=== PATIENT | male | born 1945 | race African-American/Black ===

== ENCOUNTER 2016-06-15 15:46 | Emergency (ER) | payer OTHER ==
[2016-06-15 16:05] VITALS: BP 160/85; PULSE 99; TEMP 98.2; BMI 30.9
--- NOTE | 2016-06-15 17:12 | PDOC ---
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 Patient presents today complaining of rectal discomfort unable to past a hard stool that noted at rectal vault. Patient denies any rectal bleeding, abdomininal pain or nausea or vomiting or diarrhea. He denies that this is ever happened to him before patient feels hard stool at entrance of the rectum but is unable to pass it due to discomfort. Patient reports that he had a normal bowel movement yesterday that was brown and formed and normal regular size. 06/15/16 17:12 06/15/16 18:49 Timing/Duration: getting worse (today constipated stool ) Severity: moderate (rectal ) Associated Symptoms: reports: denies symptoms. denies: fever/chills, loss of appetite, nausea/vomiting Past History - Past Medical History Allergies/Adverse Reactions: Allergies Allergy/AdvReac Type Severity Reaction Status Date / Time No Known Drug Allergies Allergy Verified 06/15/16 16:05 Home Medications: Ambulatory Orders Amlodipine Besylate [Norvasc -] 10 mg PO DAILY 05/15/13 Magnesium Hydrox 2400MG/30Ml [Milk of Magnesia -] 30 ml PO Q8H PRN #1 cup Sitagliptin Phosphate [Januvia -] 50 mg PO DAILY@0700 #30 ud 06/18/13 Docusate Sodium [Colace -] 200 mg PO DAILY #30 capsule 06/15/16 Polyethylene Glycol 3350 [Miralax (For Bowel Prep) -] 17 gm PO DAILY #1 bottle 06/15/16 Anemia: No Asthma: No Cancer: Yes (KIDNEY) Cardiac Disorders: No CVA: No COPD: No CHF: No Dementia: No Diabetes: Yes GI Disorders: No Disorders: No HTN: Yes Hypercholesterolemia: No Liver Disease: No Suicide Attempt (Hx): No Seizures: No Thyroid Disease: No - Surgical History Abdominal Surgery: No Appendectomy: No Cardiac Surgery: No Cholecystectomy: No Lung Surgery: No Neurologic Surgery: No Orthopedic Surgery: No - Psycho/Social/Smoking Cessation Hx Suicidal Ideation: No Smoking History: Never smoked Have you smoked in the past 12 months: No Hx Alcohol Use: No Drug/Substance Use Hx: No Substance Use Type: Alcohol Hx Substance Use Treatment: No Review of Systems - Review of Systems Able to Perform ROS?: Yes Constitutional: No: Symptoms Reported HEENTM: No: Symptoms Reported Respiratory: No: Symptoms reported Cardiac (ROS): No: Symptoms Reported ABD/GI: Yes: Constipated (today ), Other (rectal discomfort stool felt at entrance of anus). No: Abdominal Distended, Blood Streaked Bowels, Diarrhea, Difficulty Swallowing, Nausea, Poor Appetite, Poor Fluid Intake, Rectal Bleeding , Vomiting, Indigestion, Abdominal cramping, Tarry Stools : No: Symptoms Reported Musculoskeletal: No: Symptoms Reported Integumentary: No: Symptoms Reported Neurological: No: Symptoms reported *Physical Exam - Vital Signs Last Vital Signs Temp Pulse Resp BP Pulse Ox 98.2 F 99 H 18 160/85 99 06/15/16 16:02 06/15/16 16:02 06/15/16 16:02 06/15/16 16:02 06/15/16 16:02 - Physical Exam General Appearance: Yes: Appropriately Dressed Respiratory/Chest: positive: Lungs Clear, Normal Breath Sounds. negative: Chest Tender, Respiratory Distress Cardiovascular: positive: Regular Rhythm, Regular Rate, S1, S2 Gastrointestinal/Abdominal: positive: Normal Bowel Sounds, Soft, Other (after first fleet enema small amount of stool noted in toilet, after second large bm hard brown BM noted). negative: Tender, Organomegaly, Increased Bowel Sounds, Distended, Guarding, Rebound, Tenderness, Hernia, Mass, Hepatomegaly, Spleenomegaly Rectal Exam: positive: heme negative stool, normal rectal tone, hemorrhoids ( external non engorged/ non tender), other (hard stool palpable at opening of anus, no stool after 2nd fleet enema in rectum, tiny amount of blood noted on hard formed large BM, no stool palpated in rectum afterwards ) Integumentary: positive: Normal Color Neurologic: positive: Alert, Responsive Medical Decision Making - Medical Decision Making 06/15/16 17:12 Patient is a 71-year-old male with a history of [id number] diabetes, hypertension, and 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 Patient presents today complaining of rectal discomfort unable to past a hard stool that noted at rectal vault. Patient denies any rectal bleeding, abdomininal pain or nausea or vomiting or diarrhea. He denies that this is ever happened to him before patient feels hard stool at entrance of the rectum but is unable to pass it due to discomfort. Patient reports that he had a normal bowel movement yesterday that was brown and formed and normal regular size. Constipation fecal impaction PLAN: fleet enema X 2 first one he did not retain, tried glycerin supp this he did not retain after 2nd fleet enema large brown formed hard stool passed with tiny amt of rectal bleeding , pt. feeling a lot better will discharge to home pt. to follow up with PCP has appt tomorrow colace stool 200 mg daily miralax as directed 06/15/16 17:27 hemmocult 06/15/16 17:52 06/15/16 18:49 *DC/Admit/Observation/Transfer Diagnosis at time of Disposition: Fecal impaction of rectum Constipation Qualifiers: Constipation type: unspecified constipation type Qualified Code(s): K59.00 - Constipation, unspecified - Discharge Dispostion Disposition: HOME Condition at time of disposition: Stable - Prescriptions Prescriptions: Docusate Sodium [Colace -] 200 mg PO DAILY #30 capsule Polyethylene Glycol 3350 [Miralax (For Bowel Prep) -] 17 gm PO DAILY #1 bottle - Referrals Referrals: Juan Payton MD [Primary Care Provider] - - Patient Instructions Additional Instructions: follow up with primary care doctor tomorrow drink at least 64 oz of water daily you must eat 30 gm of fiber daily Return to emergency room if any abdominal pain, pain in rectum or new symptoms develop Patient voiced understanding of discharge instructions and all questions were answered
== END 2016-06-15 18:01 | disposition home or self-care (01) ==
LOC: JERFT 15:46
DX: K59.09 Other constipation (principal); E11.9 Type 2 diabetes mellitus without complications; Z79.4 Long term (current) use of insulin; Z79.84 Long term (current) use of oral hypoglycemic drugs; I10 Essential (primary) hypertension; Z85.528 Personal history of other malignant neoplasm of kidney; Z90.5 Acquired absence of kidney
CPT/HCPCS: 82272; 99281-25

== ENCOUNTER 2020-01-05 13:08 | Observation (INO) | payer OTHER ==
[2020-01-05] MEDS ORDERED: SODIUM CHLORIDE 0.9% 500 ML INFUS.BAG IV ONE (13:50)
[2020-01-05 14:21] LABS: BASO % 0.8 % (0-2.0); EOS % 0.9 % (0-4.5); HEMATOCRIT 37.5 % (35.4-49); HEMOGLOBIN 12.1 GM/dL (11.7-16.9); LYMPH % 10.4 % (8-40); MCH 26.6 pg (25.7-33.7); MCHC 32.4 g/dl (32.0-35.9); MEAN CELL VOLUME 82.2 fl (80-96); MEAN PLT VOLUME 9.7 fl (7.5-11.1); MONO % 5.3 % (3.8-10.2); NEUT % 82.6 % (42.8-82.8); PLATELET COUNT 223 K/MM3 (134-434); RBC 4.56 M/mm3 (4.00-5.60); RDW 14.7 % (11.9-15.9); WHITE BLOOD COUNT 8.6 K/mm3 (4.0-10.0)
[2020-01-05 14:30] LABS: INR 1.01 (0.83-1.09); PROTHROMBIN TIME (PATIENT) 12.2 SEC (9.7-13.0)
[2020-01-05 14:32] LABS: ACTIVATED PTT 31.4 SECONDS (25.2-36.5)
[2020-01-05 14:33] LABS: CHLORIDE 109 mmol/L (98-107); POTASSIUM 3.9 mmol/L (3.5-5.1); SODIUM 141 mmol/L (136-145)
[2020-01-05 14:35] LABS: ALBUMIN 3.6 g/dl (3.4-5.0); ANION GAP 6 MMOL/L (8-16); BLOOD UREA NITROGEN 13.7 mg/dL (7-18); CO2 27 mmol/L (21-32); GLUCOSE,RANDOM 119 mg/dL (74-106)
[2020-01-05 14:39] LABS: CREATININE 1.4 mg/dL (0.55-1.3); SGOT/AST 10 U/L (15-37); SGPT/ALT 15 U/L (13-61)
[2020-01-05 14:40] LABS: BILIRUBIN,TOTAL 0.6 mg/dL (0.2-1); TOT PROT 7.2 g/dl (6.4-8.2)
[2020-01-05] MEDS ORDERED: amLODIPine BESYLATE 5 MG TABLET (FP) PO ONE ×2 (14:41→21:45)
[2020-01-05] MEDS ORDERED: LOSARTAN POTASSIUM 50 MG TABLET PO ONE (14:41)
[2020-01-05 14:42] LABS: ALK PHOS 51 U/L (45-117)
[2020-01-05] MEDS ORDERED: NEBIVOLOL 2.5 MG TABLET (FP) PO ONE (14:42)
[2020-01-05] MEDS ORDERED: LOSARTAN POTASSIUM 50 MG TABLET ONE (14:47)
[2020-01-05] MEDS ORDERED: amLODIPine BESYLATE 5 MG TABLET (FP) ONE (14:47)
[2020-01-05 18:03] VITALS: BMI 27.3
[2020-01-05] MEDS ORDERED: amLODIPine BESYLATE 10 MG TABLET (FP) PO SCH (19:45)
[2020-01-05] MEDS: PANTOPRAZOLE SODIUM 40 MG VIAL IVPUSH SCH (20:48)
[2020-01-05] MEDS: DEXTROSE 5%-0.45% SALINE 1,000 ML IV SCH (20:48)
[2020-01-05] MEDS: ATORVASTATIN CA 20 MG TABLET (FP) PO SCH (21:15)
[2020-01-05] MEDS: INSULIN SLIDING SCALE (NOVOLOG) 1 VIAL SQ SCH (21:15)
[2020-01-05 21:42] LABS: BASO % 0.7 % (0-2.0); EOS % 1.6 % (0-4.5); HEMATOCRIT 32.7 % (35.4-49); HEMOGLOBIN 10.5 GM/dL (11.7-16.9); LYMPH % 16.4 % (8-40); MCH 26.5 pg (25.7-33.7); MCHC 32.2 g/dl (32.0-35.9); MEAN CELL VOLUME 82.5 fl (80-96); MEAN PLT VOLUME 9.6 fl (7.5-11.1); MONO % 8.2 % (3.8-10.2); NEUT % 73.1 % (42.8-82.8); PLATELET COUNT 201 K/MM3 (134-434); RBC 3.96 M/mm3 (4.00-5.60); RDW 14.8 % (11.9-15.9)
[2020-01-06] MEDS: INSULIN SLIDING SCALE (NOVOLOG) 1 VIAL SQ SCH ×4 (06:46→21:32)
[2020-01-06 08:27] LABS: BASO % 1.1 % (0-2.0); EOS % 2.1 % (0-4.5); HEMATOCRIT 35.7 % (35.4-49); HEMOGLOBIN 11.4 GM/dL (11.7-16.9); LYMPH % 25.4 % (8-40); MCH 26.6 pg (25.7-33.7); MCHC 32.1 g/dl (32.0-35.9); MEAN CELL VOLUME 82.9 fl (80-96); MEAN PLT VOLUME 10.1 fl (7.5-11.1); MONO % 8.6 % (3.8-10.2); NEUT % 62.8 % (42.8-82.8); PLATELET COUNT 209 K/MM3 (134-434); RDW 14.4 % (11.9-15.9); WHITE BLOOD COUNT 6.6 K/mm3 (4.0-10.0)
[2020-01-06 08:56] LABS: BLOOD UREA NITROGEN 17.9 mg/dL (7-18); CALCIUM 9.6 mg/dL (8.5-10.1)
[2020-01-06 08:58] LABS: ALBUMIN 3.2 g/dl (3.4-5.0)
[2020-01-06 09:01] LABS: CREATININE 1.2 mg/dL (0.55-1.3)
[2020-01-06 09:02] LABS: BILIRUBIN,TOTAL 0.8 mg/dL (0.2-1); TOT PROT 6.8 g/dl (6.4-8.2)
[2020-01-06] MEDS: PANTOPRAZOLE SODIUM 40 MG VIAL IVPUSH SCH (09:02)
[2020-01-06] MEDS: amLODIPine BESYLATE 5 MG TABLET (FP) PO SCH (09:02)
[2020-01-06] MEDS: NEBIVOLOL 2.5 MG TABLET (FP) PO SCH (09:02)
[2020-01-06] MEDS: POLYETHYLENE GLYCOL 3350 119 GM BTL PO SCH (11:48)
[2020-01-06] MEDS ORDERED: INSULIN (LEVEMIR) 100 UNITS/ML UNITS SQ ONE (19:11)
[2020-01-06] MEDS: ATORVASTATIN CA 20 MG TABLET (FP) PO SCH (21:31)
[2020-01-06] MEDS: DEXTROSE 5%-0.45% SALINE 1,000 ML IV SCH (23:01)
[2020-01-07] MEDS: INSULIN SLIDING SCALE (NOVOLOG) 1 VIAL SQ SCH ×4 (06:11→21:20)
[2020-01-07] MEDS: POLYETHYLENE GLYCOL 3350 119 GM BTL PO SCH (09:36)
[2020-01-07] MEDS: NEBIVOLOL 2.5 MG TABLET (FP) PO SCH (09:39)
[2020-01-07] MEDS: PANTOPRAZOLE 40 MG TABLET PO SCH (09:40)
[2020-01-07] MEDS: amLODIPine BESYLATE 5 MG TABLET (FP) PO SCH (09:41)
[2020-01-07] MEDS ORDERED: FLU VACCINE (FLULAVAL) PF 60 MCG/0.5 ML SYRINGE 2020-2021 IM ONE (18:30)
[2020-01-07] MEDS: DEXTROSE 5%-0.45% SALINE 1,000 ML IV SCH (21:04)
[2020-01-07] MEDS: ATORVASTATIN CA 20 MG TABLET (FP) PO SCH (21:16)
[2020-01-08] MEDS: DEXTROSE 5%-0.45% SALINE 1,000 ML IV SCH (02:42)
[2020-01-08] MEDS: INSULIN SLIDING SCALE (NOVOLOG) 1 VIAL SQ SCH (06:00)
[2020-01-08 08:02] LABS: CALCIUM 9.2 mg/dL (8.5-10.1); POTASSIUM 3.6 mmol/L (3.5-5.1)
[2020-01-08 08:03] LABS: ALBUMIN 3.4 g/dl (3.4-5.0); BLOOD UREA NITROGEN 8.1 mg/dL (7-18)
[2020-01-08 08:06] LABS: CREATININE 1.4 mg/dL (0.55-1.3)
[2020-01-08 08:08] LABS: BILIRUBIN,TOTAL 0.9 mg/dL (0.2-1); TOT PROT 6.9 g/dl (6.4-8.2)
[2020-01-08 08:29] LABS: BASO % 1.1 % (0-2.0); EOS % 2.5 % (0-4.5); HEMATOCRIT 36.7 % (35.4-49); HEMOGLOBIN 11.7 GM/dL (11.7-16.9); LYMPH % 16.8 % (8-40); MCH 26.1 pg (25.7-33.7); MCHC 31.7 g/dl (32.0-35.9); MEAN CELL VOLUME 82.2 fl (80-96); MONO % 7.9 % (3.8-10.2); NEUT % 71.7 % (42.8-82.8); PLATELET COUNT 242 K/MM3 (134-434); RBC 4.47 M/mm3 (4.00-5.60); RDW 14.3 % (11.9-15.9); WHITE BLOOD COUNT 7.8 K/mm3 (4.0-10.0)
[2020-01-08] MEDS: PANTOPRAZOLE 40 MG TABLET PO SCH (09:09)
[2020-01-08] MEDS: NEBIVOLOL 2.5 MG TABLET (FP) PO SCH (09:09)
[2020-01-08] MEDS: POLYETHYLENE GLYCOL 3350 119 GM BTL PO SCH (09:09)
[2020-01-08] MEDS: amLODIPine BESYLATE 5 MG TABLET (FP) PO SCH (09:09)
[2020-01-08 09:23] VITALS: BP 129/62; PULSE 71; TEMP 98.9
== END 2020-01-08 11:54 | disposition home or self-care (01) ==
LOC: JER 13:08 → JERBED 14:42 → J5S 17:17
PROVIDERS: ADMIT Internal Medicine; ATTEND Internal Medicine
PROC: 3E0234Z Introduction of Serum, Toxoid and Vaccine into Muscle, Percutaneous Approach (ICD-10-PCS; principal; 2020-01-05)
PROC: 3E033GC Introduction of Other Therapeutic Substance into Peripheral Vein, Percutaneous Approach (ICD-10-PCS; 2020-01-05)
PROC: 3E0337Z Introduction of Electrolytic and Water Balance Substance into Peripheral Vein, Percutaneous Approach (ICD-10-PCS; 2020-01-05)
DX: R04.2 Hemoptysis (principal); I10 Essential (primary) hypertension; E78.5 Hyperlipidemia, unspecified; Z85.528 Personal history of other malignant neoplasm of kidney; K92.2 Gastrointestinal hemorrhage, unspecified; E11.9 Type 2 diabetes mellitus without complications; Z90.5 Acquired absence of kidney; Z23 Encounter for immunization
CPT/HCPCS: 36415; 71045-TC-FY; 71250-TC; 80053; 82272; 82962; 84484; 85025; 85610; 85730; 86850; 86900; 86901; 93005; 93010; 96361; 96365; 96372; 96375; 99285-25; C9803; G0378; Q2036; U0003

== ENCOUNTER 2020-10-19 10:46 | Inpatient (IN) | payer OTHER ==
[2020-10-19 12:45] LABS: BASO % 0.6 % (0-2.0); EOS % 0.3 % (0-4.5); HEMATOCRIT 39.8 % (35.4-49); HEMOGLOBIN 13.3 GM/dL (11.7-16.9); LYMPH % 10.9 % (8-40); MCH 27.2 pg (25.7-33.7); MCHC 33.4 g/dl (32.0-35.9); MEAN CELL VOLUME 81.3 fl (80-96); MEAN PLT VOLUME 8.8 fl (7.5-11.1); MONO % 3.3 % (3.8-10.2); NEUT % 84.9 % (42.8-82.8); PLATELET COUNT 194 10^3/uL (134-434); RBC 4.89 M/mm3 (4.00-5.60); RDW 17.8 % (11.9-15.9); WHITE BLOOD COUNT 8.6 K/mm3 (4.0-10.0)
[2020-10-19 12:46] LABS: URINE APPEARANCE CLOUDY; URINE BILIRUBIN NEGATIVE (NEGATIVE); URINE COLOR YELLOW; URINE GLUCOSE (UA) NEGATIVE (NEGATIVE); URINE KETONE NEGATIVE (NEGATIVE); URINE LEUK ESTERASE NEGATIVE (NEGATIVE); URINE NITRITE NEGATIVE (NEGATIVE); URINE PROTEIN NEGATIVE (NEGATIVE); URINE UROBILINOGEN 0.2 mg/dL (0.2-1.0)
[2020-10-19 13:06] LABS: CHLORIDE 108 mmol/L (98-107); SODIUM 140 mmol/L (136-145)
[2020-10-19 13:08] LABS: ALBUMIN 4.1 g/dl (3.4-5.0); ANION GAP 6 MMOL/L (8-16); BLOOD UREA NITROGEN 9.5 mg/dL (7-18); CALCIUM 9.2 mg/dL (8.5-10.1); CO2 26 mmol/L (21-32); GLUCOSE,RANDOM 119 mg/dL (74-106)
[2020-10-19 13:11] LABS: CREATININE 1.3 mg/dL (0.55-1.3); SGOT/AST 14 U/L (15-37); SGPT/ALT 21 U/L (13-61)
[2020-10-19 13:13] LABS: BILIRUBIN,TOTAL 0.7 mg/dL (0.2-1)
[2020-10-19 13:14] LABS: ALK PHOS 51 U/L (45-117)
[2020-10-19] MEDS ORDERED: ATORVASTATIN CA 20 MG TABLET (FP) ONE (21:19)
[2020-10-19] MEDS: ATORVASTATIN CA 20 MG TABLET (FP) PO SCH (21:30)
[2020-10-20 06:35] LABS: BASO % 0.7 % (0-2.0); EOS % 2.1 % (0-4.5); HEMATOCRIT 37.1 % (35.4-49); HEMOGLOBIN 12.4 GM/dL (11.7-16.9); LYMPH % 20.5 % (8-40); MCH 27.1 pg (25.7-33.7); MCHC 33.4 g/dl (32.0-35.9); MEAN CELL VOLUME 81.1 fl (80-96); MEAN PLT VOLUME 9.3 fl (7.5-11.1); MONO % 9.6 % (3.8-10.2); NEUT % 67.1 % (42.8-82.8); PLATELET COUNT 185 10^3/uL (134-434); RBC 4.57 M/mm3 (4.00-5.60); WHITE BLOOD COUNT 7.3 K/mm3 (4.0-10.0)
[2020-10-20 07:01] LABS: BLOOD UREA NITROGEN 11.5 mg/dL (7-18)
[2020-10-20 07:03] LABS: BILIRUBIN,TOTAL 0.8 mg/dL (0.2-1); TOT PROT 6.7 g/dl (6.4-8.2)
[2020-10-20 07:04] LABS: CREATININE 1.3 mg/dL (0.55-1.3)
[2020-10-20 07:07] LABS: ALBUMIN 3.4 g/dl (3.4-5.0)
[2020-10-20] MEDS ORDERED: PANTOPRAZOLE 40 MG TABLET ONE (09:48)
[2020-10-20] MEDS ORDERED: LOSARTAN POTASSIUM 50 MG TABLET ONE (09:48)
[2020-10-20] MEDS ORDERED: ENOXAPARIN NA (PORCINE) 40 MG/0.4 ML DISP.SYRIN SQ ONE (09:48)
[2020-10-20] MEDS ORDERED: amLODIPine BESYLATE 5 MG TABLET (FP) ONE (09:48)
[2020-10-20] MEDS: LOSARTAN POTASSIUM 50 MG TABLET PO SCH (11:25)
[2020-10-20] MEDS: PANTOPRAZOLE 40 MG TABLET PO SCH (11:25)
[2020-10-20] MEDS: amLODIPine BESYLATE 5 MG TABLET (FP) PO SCH (11:25)
[2020-10-20] MEDS: ENOXAPARIN NA (PORCINE) 40 MG/0.4 ML DISP.SYRIN SQ SCH (11:25)
[2020-10-20] MEDS: POLYETHYLENE GLYCOL (HEALTHYLAX) 3350 17 GM PACKET PO SCH (13:54)
[2020-10-20] MEDS ORDERED: POLYETHYLENE GLYCOL (HEALTHYLAX) 3350 17 GM PACKET ONE (13:54)
[2020-10-20] MEDS ORDERED: ATORVASTATIN CA 20 MG TABLET (FP) ONE (22:10)
[2020-10-20] MEDS: ATORVASTATIN CA 20 MG TABLET (FP) PO SCH (22:25)
[2020-10-21 04:38] VITALS: BMI 27.6
[2020-10-21] MEDS: INSULIN SLIDING SCALE (NOVOLOG) 1 VIAL SQ SCH ×4 (06:34→20:59)
[2020-10-21 07:30] LABS: EOS % 2.2 % (0-4.5); HEMATOCRIT 37.1 % (35.4-49); HEMOGLOBIN 12.3 GM/dL (11.7-16.9); LYMPH % 26.9 % (8-40); MCH 26.7 pg (25.7-33.7); MCHC 33.2 g/dl (32.0-35.9); MEAN CELL VOLUME 80.5 fl (80-96); MEAN PLT VOLUME 9.2 fl (7.5-11.1); MONO % 9.2 % (3.8-10.2); NEUT % 60.7 % (42.8-82.8); PLATELET COUNT 176 10^3/uL (134-434); RBC 4.61 M/mm3 (4.00-5.60); RDW 17.5 % (11.9-15.9); WHITE BLOOD COUNT 6.4 K/mm3 (4.0-10.0)
[2020-10-21 07:51] LABS: ALBUMIN 3.2 g/dl (3.4-5.0); BLOOD UREA NITROGEN 14.1 mg/dL (7-18); CALCIUM 8.7 mg/dL (8.5-10.1)
[2020-10-21 07:54] LABS: CREATININE 1.3 mg/dL (0.55-1.3)
[2020-10-21 07:56] LABS: BILIRUBIN,TOTAL 0.5 mg/dL (0.2-1); TOT PROT 6.3 g/dl (6.4-8.2)
[2020-10-21] MEDS: ENOXAPARIN NA (PORCINE) 40 MG/0.4 ML DISP.SYRIN SQ SCH (09:13)
[2020-10-21] MEDS: amLODIPine BESYLATE 5 MG TABLET (FP) PO SCH (09:14)
[2020-10-21] MEDS: LOSARTAN POTASSIUM 50 MG TABLET PO SCH (09:14)
[2020-10-21] MEDS: POLYETHYLENE GLYCOL (HEALTHYLAX) 3350 17 GM PACKET PO SCH (09:14)
[2020-10-21] MEDS: PANTOPRAZOLE 40 MG TABLET PO SCH (09:14)
[2020-10-21] MEDS: ATORVASTATIN CA 20 MG TABLET (FP) PO SCH (21:00)
[2020-10-22] MEDS: INSULIN SLIDING SCALE (NOVOLOG) 1 VIAL SQ SCH ×3 (06:16→18:32)
[2020-10-22] MEDS: LOSARTAN POTASSIUM 50 MG TABLET PO SCH (09:17)
[2020-10-22] MEDS: amLODIPine BESYLATE 5 MG TABLET (FP) PO SCH (09:17)
[2020-10-22] MEDS ORDERED: REGADENOSON 0.4 MG/5 ML PRE-FILLED SYRINGE IVPUSH ONE ×2 (10:12→10:30)
[2020-10-22] MEDS ORDERED: PT OWN MED DRAWER 7, Y5N ONE (13:19)
[2020-10-22] MEDS: PANTOPRAZOLE 40 MG TABLET PO SCH (13:32)
[2020-10-22] MEDS: ENOXAPARIN NA (PORCINE) 40 MG/0.4 ML DISP.SYRIN SQ SCH (13:32)
[2020-10-22] MEDS: POLYETHYLENE GLYCOL (HEALTHYLAX) 3350 17 GM PACKET PO SCH (13:32)
[2020-10-22 14:09] VITALS: BP 147/89; PULSE 79; TEMP 98.2
== END 2020-10-22 18:56 | disposition home or self-care (01) | DRG 313 ==
LOC: JER 10:46 → JERBED 14:49 → OBSVTOIN 14:49 → J4W 10-21 02:35
PROVIDERS: ADMIT Family Medicine Geriatric Medicine; ATTEND Family Medicine Geriatric Medicine
DX: R07.89 Other chest pain (principal); I44.0 Atrioventricular block, first degree; E11.9 Type 2 diabetes mellitus without complications; R55 Syncope and collapse; I10 Essential (primary) hypertension; E78.5 Hyperlipidemia, unspecified; Z85.528 Personal history of other malignant neoplasm of kidney; Z90.5 Acquired absence of kidney
CPT/HCPCS: 36415; 70450-TC; 71045-TC-FY; 78452-TC; 80053; 80061; 81003; 82272; 82550; 82607; 82962; 84443; 84484; 85025; 87086; 93005; 93010; 93017; 93306-TC; 93880-TC; 97116-GP; 97161-GP; 99285-25; A9502; C9803; J2785; U0003; U0005

== ENCOUNTER 2022-10-25 11:58 | Inpatient (IN) | payer OTHER ==
[2022-10-25] MEDS ORDERED: METHOCARBAMOL 500 MG TABLET PO ONE (12:39)
[2022-10-25] MEDS ORDERED: LIDOCAINE 5% TOPICAL PATCH TP ONE (12:39)
[2022-10-25] MEDS ORDERED: KETOROLAC TROMETHAMINE 30 MG/1 ML VIAL IM ONE (12:39)
[2022-10-25] MEDS ORDERED: LIDOCAINE 5% TOPICAL PATCH ONE (12:56)
[2022-10-25] MEDS ORDERED: METHOCARBAMOL 500 MG TABLET ONE (12:57)
[2022-10-25] MEDS ORDERED: KETOROLAC TROMETHAMINE 60 MG/2 ML VIAL ONE (12:57)
[2022-10-25 17:18] LABS: BASO % 0.6 % (0-2.0); EOS % 0.3 % (0-4.5); HEMATOCRIT 41.2 % (35.4-49); HEMOGLOBIN 13.5 GM/dL (11.7-16.9); LYMPH % 12.8 % (8-40); MCH 26.8 pg (25.7-33.7); MCHC 32.8 g/dl (32.0-35.9); MEAN CELL VOLUME 81.8 fl (80-96); MEAN PLT VOLUME 9.2 fl (7.5-11.1); MONO % 8.2 % (3.8-10.2); NEUT % 78.1 % (42.8-82.8); PLATELET COUNT 180 10^3/uL (134-434); RBC 5.03 M/mm3 (4.00-5.60); RDW 15.4 % (11.9-15.9); WHITE BLOOD COUNT 10.3 K/mm3 (4.0-10.0)
[2022-10-25 18:13] LABS: POTASSIUM 3.6 mmol/L (3.5-5.1)
[2022-10-25 18:15] LABS: CALCIUM 8.6 mg/dL (8.5-10.1)
[2022-10-25 18:16] LABS: ALBUMIN 3.6 g/dl (3.4-5.0); BLOOD UREA NITROGEN 16.8 mg/dL (7-18)
[2022-10-25 18:19] LABS: CREATININE 1.5 mg/dL (0.55-1.3)
[2022-10-25 18:21] LABS: BILIRUBIN,TOTAL 1.3 mg/dL (0.2-1); TOT PROT 6.9 g/dl (6.4-8.2)
[2022-10-25] MEDS: ATORVASTATIN CA 20 MG TABLET (FP) PO SCH (21:55)
[2022-10-25] MEDS: NAPROXEN 500 MG TABLET PO SCH (21:55)
[2022-10-25] MEDS: INSULIN SLIDING SCALE (NOVOLOG) 1 VIAL SQ SCH (22:02)
[2022-10-26 01:36] VITALS: BMI 27.8
[2022-10-26] MEDS: INSULIN SLIDING SCALE (NOVOLOG) 1 VIAL SQ SCH ×4 (06:31→21:38)
[2022-10-26] MEDS: amLODIPine BESYLATE 10 MG TABLET (FP) PO SCH (10:12)
[2022-10-26] MEDS: NEBIVOLOL 2.5 MG TABLET (FP) PO SCH (10:12)
[2022-10-26] MEDS: LOSARTAN POTASSIUM 50 MG TABLET PO SCH (10:13)
[2022-10-26] MEDS: PANTOPRAZOLE 40 MG TABLET PO SCH (10:13)
[2022-10-26] MEDS: NAPROXEN 500 MG TABLET PO SCH ×2 (10:13→21:39)
[2022-10-26] MEDS: POLYETHYLENE GLYCOL (HEALTHYLAX) 3350 17 GM PACKET PO SCH (10:14)
[2022-10-26] MEDS: ENOXAPARIN NA (PORCINE) 40 MG/0.4 ML DISP.SYRIN SQ SCH (10:22)
[2022-10-26 10:33] LABS: BASO % 0.6 % (0-2.0); EOS % 1.1 % (0-4.5); HEMATOCRIT 41.9 % (35.4-49); LYMPH % 15.7 % (8-40); MCH 27.1 pg (25.7-33.7); MCHC 33.3 g/dl (32.0-35.9); MEAN CELL VOLUME 81.4 fl (80-96); MEAN PLT VOLUME 9.9 fl (7.5-11.1); MONO % 8.6 % (3.8-10.2); PLATELET COUNT 196 10^3/uL (134-434); RBC 5.15 M/mm3 (4.00-5.60); RDW 15.5 % (11.9-15.9); WHITE BLOOD COUNT 9.6 K/mm3 (4.0-10.0)
[2022-10-26 10:59] LABS: POTASSIUM 3.5 mmol/L (3.5-5.1)
[2022-10-26 11:34] LABS: CALCIUM 9.1 mg/dL (8.5-10.1)
[2022-10-26 11:35] LABS: ALBUMIN 3.6 g/dl (3.4-5.0); BLOOD UREA NITROGEN 18.2 mg/dL (7-18)
[2022-10-26 11:38] LABS: CREATININE 1.4 mg/dL (0.55-1.3)
[2022-10-26 11:39] LABS: BILIRUBIN,TOTAL 1.7 mg/dL (0.2-1); TOT PROT 7.1 g/dl (6.4-8.2)
[2022-10-26] MEDS ORDERED: INSULIN (NOVOLOG) ASPART 100 UNITS/ML 10ML VIAL ONE (21:18)
[2022-10-26] MEDS: ATORVASTATIN CA 20 MG TABLET (FP) PO SCH (21:26)
[2022-10-27] MEDS: INSULIN SLIDING SCALE (NOVOLOG) 1 VIAL SQ SCH ×4 (06:18→22:04)
[2022-10-27] MEDS: ENOXAPARIN NA (PORCINE) 40 MG/0.4 ML DISP.SYRIN SQ SCH (09:57)
[2022-10-27] MEDS: PANTOPRAZOLE 40 MG TABLET PO SCH (09:59)
[2022-10-27] MEDS: LOSARTAN POTASSIUM 50 MG TABLET PO SCH (09:59)
[2022-10-27] MEDS: NAPROXEN 500 MG TABLET PO SCH ×2 (09:59→22:06)
[2022-10-27] MEDS: NEBIVOLOL 2.5 MG TABLET (FP) PO SCH (09:59)
[2022-10-27] MEDS: POLYETHYLENE GLYCOL (HEALTHYLAX) 3350 17 GM PACKET PO SCH (10:17)
[2022-10-27] MEDS: amLODIPine BESYLATE 10 MG TABLET (FP) PO SCH (10:21)
[2022-10-27 10:46] LABS: BASO % 0.6 % (0-2.0); EOS % 2.4 % (0-4.5); HEMATOCRIT 37.6 % (35.4-49); HEMOGLOBIN 12.1 GM/dL (11.7-16.9); LYMPH % 13.9 % (8-40); MCH 26.7 pg (25.7-33.7); MEAN CELL VOLUME 83.2 fl (80-96); MEAN PLT VOLUME 10.2 fl (7.5-11.1); MONO % 10.3 % (3.8-10.2); NEUT % 72.8 % (42.8-82.8); PLATELET COUNT 175 10^3/uL (134-434); RBC 4.52 M/mm3 (4.00-5.60); RDW 15.1 % (11.9-15.9); WHITE BLOOD COUNT 7.3 K/mm3 (4.0-10.0)
[2022-10-27] MEDS: CYCLOBENZAPRINE HCL 10 MG TABLET (FP) PO PRN (11:05)
[2022-10-27 11:10] LABS: POTASSIUM 3.5 mmol/L (3.5-5.1)
[2022-10-27 11:43] LABS: ALBUMIN 3.1 g/dl (3.4-5.0); CALCIUM 8.4 mg/dL (8.5-10.1)
[2022-10-27 11:44] LABS: BLOOD UREA NITROGEN 16.2 mg/dL (7-18)
[2022-10-27 11:46] LABS: CREATININE 1.3 mg/dL (0.55-1.3)
[2022-10-27 11:48] LABS: BILIRUBIN,TOTAL 1.1 mg/dL (0.2-1); TOT PROT 6.1 g/dl (6.4-8.2)
[2022-10-27] MEDS ORDERED: INSULIN (NOVOLOG) ASPART 100 UNITS/ML 10ML VIAL ONE (21:25)
[2022-10-27] MEDS: ATORVASTATIN CA 20 MG TABLET (FP) PO SCH (22:05)
[2022-10-28] MEDS: INSULIN SLIDING SCALE (NOVOLOG) 1 VIAL SQ SCH ×4 (06:23→21:12)
[2022-10-28 11:27] VITALS: RESP 18
[2022-10-28] MEDS: amLODIPine BESYLATE 10 MG TABLET (FP) PO SCH (11:29)
[2022-10-28] MEDS: LOSARTAN POTASSIUM 50 MG TABLET PO SCH (11:29)
[2022-10-28] MEDS: POLYETHYLENE GLYCOL (HEALTHYLAX) 3350 17 GM PACKET PO SCH (11:29)
[2022-10-28] MEDS: NEBIVOLOL 2.5 MG TABLET (FP) PO SCH (11:31)
[2022-10-28] MEDS: PANTOPRAZOLE 40 MG TABLET PO SCH (11:31)
[2022-10-28] MEDS: CYCLOBENZAPRINE HCL 10 MG TABLET (FP) PO PRN (11:31)
[2022-10-28] MEDS: NAPROXEN 500 MG TABLET PO SCH ×2 (11:31→21:12)
[2022-10-28] MEDS: ENOXAPARIN NA (PORCINE) 40 MG/0.4 ML DISP.SYRIN SQ SCH (11:31)
[2022-10-28] MEDS: CEFTRIAXONE 2 GM in DEXTROSE 5%-WATER 100 ML IVPB SCH (15:19)
[2022-10-28] MEDS: ATORVASTATIN CA 20 MG TABLET (FP) PO SCH (21:12)
[2022-10-29] MEDS: INSULIN SLIDING SCALE (NOVOLOG) 1 VIAL SQ SCH ×4 (06:22→21:47)
[2022-10-29] MEDS: CEFTRIAXONE 2 GM in DEXTROSE 5%-WATER 100 ML IVPB SCH (09:15)
[2022-10-29] MEDS: POLYETHYLENE GLYCOL (HEALTHYLAX) 3350 17 GM PACKET PO SCH (09:15)
[2022-10-29] MEDS: amLODIPine BESYLATE 10 MG TABLET (FP) PO SCH (09:15)
[2022-10-29] MEDS: ENOXAPARIN NA (PORCINE) 40 MG/0.4 ML DISP.SYRIN SQ SCH (09:15)
[2022-10-29] MEDS: NAPROXEN 500 MG TABLET PO SCH ×2 (09:16→21:45)
[2022-10-29] MEDS: NEBIVOLOL 2.5 MG TABLET (FP) PO SCH (09:17)
[2022-10-29] MEDS: LOSARTAN POTASSIUM 50 MG TABLET PO SCH (09:17)
[2022-10-29] MEDS: PANTOPRAZOLE 40 MG TABLET PO SCH (09:17)
[2022-10-29] MEDS ORDERED: INSULIN (NOVOLOG) ASPART 100 UNITS/ML 10ML VIAL ONE (21:18)
[2022-10-29] MEDS: ATORVASTATIN CA 20 MG TABLET (FP) PO SCH (21:46)
[2022-10-30] MEDS: INSULIN SLIDING SCALE (NOVOLOG) 1 VIAL SQ SCH ×4 (06:29→22:35)
[2022-10-30] MEDS: CEFTRIAXONE 2 GM in DEXTROSE 5%-WATER 100 ML IVPB SCH (10:04)
[2022-10-30] MEDS: amLODIPine BESYLATE 10 MG TABLET (FP) PO SCH (10:06)
[2022-10-30] MEDS: NEBIVOLOL 2.5 MG TABLET (FP) PO SCH (10:06)
[2022-10-30] MEDS: NAPROXEN 500 MG TABLET PO SCH ×2 (10:06→22:35)
[2022-10-30] MEDS: PANTOPRAZOLE 40 MG TABLET PO SCH (10:06)
[2022-10-30] MEDS: ENOXAPARIN NA (PORCINE) 40 MG/0.4 ML DISP.SYRIN SQ SCH (10:06)
[2022-10-30] MEDS: POLYETHYLENE GLYCOL (HEALTHYLAX) 3350 17 GM PACKET PO SCH (10:07)
[2022-10-30] MEDS: LOSARTAN POTASSIUM 50 MG TABLET PO SCH (10:07)
[2022-10-30] MEDS: ATORVASTATIN CA 20 MG TABLET (FP) PO SCH (22:35)
[2022-10-31] MEDS: INSULIN SLIDING SCALE (NOVOLOG) 1 VIAL SQ SCH ×2 (06:28→11:05)
[2022-10-31] MEDS: CEFTRIAXONE 2 GM in DEXTROSE 5%-WATER 100 ML IVPB SCH (09:32)
[2022-10-31] MEDS: NAPROXEN 500 MG TABLET PO SCH (09:33)
[2022-10-31] MEDS: amLODIPine BESYLATE 10 MG TABLET (FP) PO SCH (09:33)
[2022-10-31] MEDS: POLYETHYLENE GLYCOL (HEALTHYLAX) 3350 17 GM PACKET PO SCH (09:34)
[2022-10-31] MEDS: LOSARTAN POTASSIUM 50 MG TABLET PO SCH (09:34)
[2022-10-31] MEDS: NEBIVOLOL 2.5 MG TABLET (FP) PO SCH (09:34)
[2022-10-31] MEDS: ENOXAPARIN NA (PORCINE) 40 MG/0.4 ML DISP.SYRIN SQ SCH (09:34)
[2022-10-31] MEDS: PANTOPRAZOLE 40 MG TABLET PO SCH (09:34)
[2022-10-31 12:18] VITALS: BP 141/71; PULSE 68; TEMP 98.2
== END 2022-10-31 13:00 | disposition home or self-care (01) | DRG 552 ==
LOC: JERFT 11:58 → JERBED 16:25 → J6S 18:34 → OBSVTOIN 10-26 11:53
PROVIDERS: ADMIT Internal Medicine; ATTEND Internal Medicine
DX: M43.16 Spondylolisthesis, lumbar region (principal); I10 Essential (primary) hypertension; E11.9 Type 2 diabetes mellitus without complications; G20 Parkinson's disease; D64.9 Anemia, unspecified; M54.18 Radiculopathy, sacral and sacrococcygeal region; Z85.528 Personal history of other malignant neoplasm of kidney; R53.1 Weakness; M51.36 Other intervertebral disc degeneration, lumbar region; M48.061 Spinal stenosis, lumbar region without neurogenic claudication
CPT/HCPCS: 36415; 70450-TC; 72131-TC; 72148-TC; 72149-TC; 80053; 82962; 85025; 85651; 86140; 87040; 93005; 93010; 97116-GP; 97162-GP; 99285-25; A9579; G0378

== ENCOUNTER 2024-08-21 17:05 | Emergency (ER) | payer OTHER ==
[2024-08-21 17:19] VITALS: BP 119/71; PULSE 69; RESP 18; TEMP 98; BMI 30.7
[2024-08-21] MEDS ORDERED: LIDOCAINE 5% TOPICAL PATCH TP ONE (18:23)
[2024-08-21] MEDS ORDERED: KETOROLAC TROMETHAMINE 15 MG/ML VIAL ONE (18:28)
[2024-08-21] MEDS ORDERED: LIDOCAINE 4% PATCH TP ONE (18:28)
[2024-08-21] MEDS ORDERED: ACETAMINOPHEN 325 MG TABLET (FP) ONE (18:28)
[2024-08-21] MEDS: ACETAMINOPHEN 325 MG TABLET (FP) PO ONE (19:14)
[2024-08-21] MEDS: KETOROLAC TROMETHAMINE 30 MG/1 ML VIAL IM ONE (19:14)
[2024-08-21] MEDS: LIDOCAINE 4% PATCH TP ONE (19:15)
[2024-08-21] MEDS ORDERED: LIDOCAINE PATCH REMOVAL MC SCH ×2 (22:00)
== END 2024-08-21 20:01 | disposition home or self-care (01) ==
LOC: JERFT 17:05
PROC: 3E0233Z Introduction of Anti-inflammatory into Muscle, Percutaneous Approach (ICD-10-PCS; principal; 2024-08-21)
DX: M62.830 Muscle spasm of back (principal)
CPT/HCPCS: 72100-TC-FY; 96372; 99284-25